=== PATIENT | female | born 1935 | race Caucasian/White ===

== ENCOUNTER 2021-07-08 09:22 | Emergency (ER) | payer OTHER ==
--- OUTSIDE RECORDS SUMMARY | 2021-07-08 09:28 | XMS REPORT | Continuity of Care Document ---
:[address] [facility] Address [address] [place] [address] [address] [place] [address] Care Team Providers Name Role Phone Attar Primary Care Physician ANGELITO RUEDA Attending Clinician Unavailable Nurse, Pob Immunization Attending Clinician Unavailable Angelito Rueda DO Attending Clinician NAVA Attending Clinician Unavailable Malachi ENRIQUE Attending Clinician Unavailable Payers Payer Name Policy Type Policy Number Effective Date Expiration Date S betsy MEDICARE PART A [id number] 1998 AND B 00:00:00 [facility] [id number] 1998 00:00:00 MEDICARE PART A [id number] 1998 \T\ B 00:00:00 Problems This patient has no known problems. Allergies, Adverse Reactions, Alerts Allergy Allergy Status Severity Reaction(s) Onset Inactive Treating Comm ents Source Name Type Date Date Clinician NO KNOWN Drug Active Univers ALLERGIE Class ity of [facility] Social History Social Habit Start Date Stop Date Quantity Comments Source Sex Assigned At [birth year] [facility] 00:00:00 00:00:00 [facility] Smoking Status Start Date Stop Date Source Unknown if ever smoked [facility] Medications This patient has no known medications. Immunizations Ordered Filled Immunization Date Status Comments [facility] Immunization Name Name SARS-COV-2 COVID-19 2020-12-22 Completed Unive rsity of MODERNA VACCINE 00:00:00 [facility] SARS-COV-2 COVID-19 2020-05-20 Completed Unive rsity of MODERNA VACCINE 00:00:00 [facility] SARS-COV-2 COVID-19 2020-04-22 Completed Unive rsity of MODERNA VACCINE 00:00:00 [facility] Procedures Procedure Date / Time Performed Performing Clinician Sourgio e SARS-COV-2 COVID-19 2020-12-22 18:07:55 Doctor Unassigned, No [facility] [place] VACCINE,0.5ML,IM Name Medical Branch ([facility]) Encounters Start End Encounter Admission Attending Care Care Encounter Source Date/Time Date/Time Type Type Clinicians Facility Department ID 2021-05-17 Outpatient MDA ROWENA [id number] 17:51:16 Andaddison harley 2021-05-17 Outpatient ROWENA GUAMAN [id number] 17:51:15 Josh harley 2020-12-22 2020-12-22 Outpatient Jean RUEDA [facility] [id number] Univers 13:25:00 13:25:00 MAXI syed [facility] 2020-12-22 2020-12-22 Imm/Inj Nurse, Adc Pob Immunization [facility] [id number] Univers 13:06:08 13:06:33 Visit Maxi Rueda [place] [id number] [facility] [id number] Vaibhav Hanson [id number] [address] 2020-06-12 2020-06-12 Outpatient OVIDIO VICK MDA MDA [id number] 09:50:39 23:59:00 ALEX harley 2020-06-12 2020-06-12 Outpatient OVIDIO VICK MDA MDA [id number] 14:07:54 15:29:05 ALEX harley 2020-06-12 2020-06-12 Outpatient OVIDIO VICK MDA MDA [id number] 10:15:00 10:15:00 ALEX harley 2020-05-20 2020-05-20 Outpatient Jean ENRIQUE [facility] [id number] Univers 12:50:00 12:50:00 LAWANDA syed [facility] 2020-05-20 2020-05-20 Outpatient Jean ENRIQUE [facility] [id number] Univers 12:50:00 12:50:00 LAWANDA [id number] [facility] 2020-04-22 2020-04-22 [facility] [id number] [facility] 13:20:00 13:20:00 LAWANDA [facility] Results This patient has no known results.
[2021-07-08 09:50] LABS: Urine Blood Negative (Negative); Urine Glucose Negative (Negative); Urine Protein Negative (Negative); Urine Specific Gravity 1.025 (1.005-1.030)
[2021-07-08] MEDS ORDERED: NA CHLORIDE 0.9% 500 ML ONE (10:02)
[2021-07-08 10:08] LABS: Absolute Lymphocytes (CBC) 2.3 K/uL (0.7-4.9); Hematocrit 43.1 % (36.0-45.0); Lymphocytes % 20.4 % (15.3-44.8); MPV 9.9 fL (7.6-11.3); RBC Red Blood Cell Count 4.78 M/uL (3.86-4.86)
[2021-07-08 10:25] LABS: Albumin 3.9 g/dL (3.4-5.0); Bilirubin Total 0.5 mg/dL (0.2-1.0); Protein, Total 7.5 g/dL (6.4-8.2)
--- NOTE | 2021-07-08 10:29 | RAD REPORT ---
EXAM DESCRIPTION: US - Abdomen Exam Limited - 07/08/2021 10:18 am CLINICAL HISTORY: EPIGASTRIC PAIN COMPARISON: No comparisonsNo comparisons FINDINGS: Cholecystectomy. Common bile duct is normal caliber measuring 3 millimeters. Patent main p ortal vein. The liver demonstrates no findings of intrahepatic biliary dilatation. IMPRESSION: Cholecystectomy. No biliary ductal dilatation.
[2021-07-08 10:32] LABS: Potassium 4.2 mmol/L (3.5-5.1)
--- NOTE | 2021-07-08 11:08 | RAD REPORT ---
EXAM DESCRIPTION: CTAbdomen Pelvis W Contrast - 07/08/2021 10:53 am CLINICAL HISTORY: ABD PAIN COMPARISON: No comparisons TECHNIQUE: CT of the abdomen and pelvis was performed with contrast. All CT scans are performed using dose optimization technique as appropriate and may include automated exposure control or mA/KV adjustment according to patient size. FINDINGS: Lower chest: Multi-vessel coronary artery disease. Mild circumferential thickened distal e sophagus which may reflect esophagitis. Mitral annular calcifications. Liver: Too small to characterize liver lesions which are likely benign. Biliary: Cholecystectomy Stomach: No significant focal abnormality. Duodenum: No significant focal abnormality. Pancreas: No significant abnormality. Spleen: No significant abnormality. Adrenal: No suspicious lesions. Kidney/ureter: No hydronephrosis. No renal calculi. Too small to characterize and/or benign appearing renal lesions are noted. Retroperitoneum: No retroperitoneal adenopathy. Vascular: No aneurysm. Atherosclerosis. Bowel: Diverticulosis without diverticulitis. No appendix identified. Peritoneum: No ascites or free air. Bladder: Grossly unremarkable. Reproductive: No adnexal masses. Hysterectomy. Bones: No acute fracture. Multilevel degenerative changes are present in the spine. Other: n/a IMPRESSION: No acute intra-abdominal or pelvic finding. Incidental findings as noted above.
--- NOTE | 2021-07-08 11:12 | EDPHYS ---
Physician Documentation [facility] Name: Nusrat Bear Age: 86 yrs Sex: Female : 1935 Arrival Date: 07/08/2021 Time: 09:28 Bed 8 Private MD: Giuseppe Bernal F ED Physician Lj Santana HPI: 07/08 09:55 This 86 yrs old Female presents to ER via Ambulatory with complaints of Abdominal Pain, pm1 Nausea, Diarrhea. 09:55 The patient presents with abdominal pain in the upper abdomen. Onset: The pm1 symptoms/episode began/occurred today. The symptoms do not radiate. Associated signs and symptoms: Pertinent positives: diarrhea, Pertinent negatives: nausea and vomiting. The symptoms are described as achy, sharp. Modifying factors: The symptoms are alleviated by nothing, the symptoms are aggravated by nothing. Severity of pain: in the emergency department the pain has resolved. The patient has not experienced similar symptoms in the past. The patient has not recently seen a physician. 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 - Social history:: Smoking status: Patient denies any tobacco usage or history of. ROS: 09:55 Constitutional: Negative for fever, chills, and weight loss, Cardiovascular: Negative pm1 for chest pain, palpitations, and edema, Respiratory: Negative for shortness of breath, cough, wheezing, and pleuritic chest pain. 09:55 Back: Negative for injury and pain, : Negative for injury, bleeding, discharge, and swelling, MS/Extremity: Negative for injury and deformity, Skin: Negative for injury, rash, and discoloration, Neuro: Negative for headache, weakness, numbness, tingling, and seizure. 09:55 Abdomen/GI: Positive for abdominal pain, diarrhea, of the epigastric area, Negative for nausea and vomiting. 09:55 All other systems are negative. Exam: 09:55 Constitutional: This is a well developed, well nourished patient who is awake, alert, pm1 and in no acute distress. Head/Face: Normocephalic, atraumatic. 09:55 Back: No spinal tenderness. No costovertebral tenderness. Full range of motion. Skin: Warm, dry with normal turgor. Normal color with no rashes, no lesions, and no evidence of cellulitis. 09:55 MS/ Extremity: Pulses equal, no cyanosis. Neurovascular intact. Full, normal range of motion. 09:55 Cardiovascular: Exam negative for acute changes, Rate: normal. 09:55 Respiratory: Exam negative for acute changes, respiratory distress, shortness of breath. 09:55 Abdomen/GI: Inspection: abdomen appears normal, Palpation: abdomen is soft and non-tender. 09:55 Neuro: Exam negative for acute changes, Orientation: is normal, Mentation: is normal, Motor: is normal, moves all fours. Vital Signs: 09:48 BP 159 / 68; Pulse 84; Resp 16; Temp 97.4; Pulse Ox 99% on R/A; Weight 66.68 kg; Height ww 5 ft. 4 in. (162.56 cm); Pain 6/10; 09:48 Body Mass Index 25.23 (66.68 kg, 162.56 cm) ww MDM: 09:39 Patient medically screened. pm1 09:55 ED course: Patient is not experiencing any pain right now. Will give the patient pain pm1 medications if the pain returns. 11:11 Data reviewed: vital signs. Data interpreted: Pulse oximetry: on room air is 99 %. pm1 Interpretation: normal. 11:11 Counseling: I had a detailed discussion with the patient and/or guardian regarding: the pm1 historical points, exam findings, and any diagnostic results supporting the discharge/admit diagnosis, lab results, radiology results, the need for outpatient follow up, to return to the emergency department if symptoms worsen or persist or if there are any questions or concerns that arise at home. 07/08 09:50 Order name: Urine Dipstick-Ancillary; Complete Time: 09:55 EDMS 07/08 09:55 Order name: CBC with Diff; Complete Time: 11:36 pm1 07/08 09:55 Order name: CMP; Complete Time: 10:37 pm1 07/08 09:55 Order name: Lipase; Complete Time: 10:37 pm1 07/08 09:55 Order name: CT Abd/Pelvis - IV Contrast Only; Complete Time: 11:11 pm1 07/08 11:31 Order name: CBC Smear Scan; Complete Time: 11:36 EDKY 07/08 09:55 Order name: IV Saline Lock; Complete Time: 09:56 pm1 07/08 09:55 Order name: Labs collected and sent; Complete Time: 09:56 pm1 07/08 09:59 Order name: US Abdomen Limited; Complete Time: 10:37 pm1 Administered Medications: 10:10 Drug: NS 0.9% 500 ml Route: IV; Rate: bolus; Site: right forearm; ww 11:22 Drug: Bentyl (dicyclomine) 20 mg Route: PO; ww Disposition Summary: 07/08/21 11:12 Discharge Ordered Location: Home pm1 Problem: new pm1 Symptoms: have improved pm1 Condition: Stable pm1 Diagnosis - Abdominal pain, unspecified pm1 - Diarrhea, unspecified pm1 Followup: pm1 - With: Emergency Department - When: As needed - Reason: Worsening of condition Followup: pm1 - With: Private Physician - When: 2 - 3 days - Reason: Recheck today's complaints, Continuance of care, Re-evaluation by your physician Discharge Instructions: - Discharge Summary Sheet pm1 - Abdominal Pain, Adult pm1 - Food Choices to Help Relieve Diarrhea, Adult pm1 - Diarrhea, Adult pm1 Forms: - Medication Reconciliation Form pm1 - Thank You Letter pm1 - Antibiotic Education pm1 - Prescription Opioid Use pm1 Prescriptions: - dicyclomine 20 mg Oral Tablet - take 1 tablet by ORAL route every 6 hours As needed; 20 tablet; Refills: 0, pm1 Product Selection Permitted Addendum: 07/11/2021 07:12 Co-signature as Attending Physician, Lj Santana MD I agree with the assessment and c watikns plan of care. Signatures: Dispatcher [employer] [facility] Lj Santana MD MD cha Marinas, Patrick, REVERBERATORY FURNACE OPERATOR REVERBERATORY FURNACE OPERATOR pm1 Lucy De La Cruz RN RN ww Corrections: (The following items were deleted from the chart) 07/08 17:53 09:55 Associated signs and symptoms: none. pm1 pm1 17:53 09:55 Abdomen/GI: Positive for abdominal pain, of the epigastric area, Negative for pm1 nausea, vomiting, and diarrhea, constipation, pm1
--- NOTE | 2021-07-08 11:12 | ER ---
Nurse's Notes [facility] Name: Nusrat Bear Age: 86 yrs Sex: Female : 1935 Arrival Date: 07/08/2021 Time: 09:28 Bed 8 Private MD: Giuseppe Bernal F Diagnosis: Abdominal pain, unspecified;Diarrhea, unspecified Presentation: 07/08 09:48 Chief complaint: Patient states: Epigastric pain that started last night. Throughout ww the night she developed diarrhea. Patient denies any vomiting. Coronavirus screen: Vaccine status: Patient reports receiving the 2nd dose of the covid vaccine. Client denies travel out of the [place] in the last 14 days. Ebola Screen: Patient denies travel to an Ebola-affected area in the 21 days before illness onset. Initial Sepsis Screen: Does the patient meet any 2 criteria? No. Patient's initial sepsis screen is negative. Does the patient have a suspected source of infection? No. Patient's initial sepsis screen is negative. Risk Assessment: Do you want to hurt yourself or someone else? Patient reports no desire to harm self or others. Onset of symptoms was July 08, 2021. 09:48 Method Of Arrival: Ambulatory ww 09:48 Acuity: VIKAS 3 ww Triage Assessment: 09:50 General: Appears in no apparent distress. Behavior is cooperative. Pain: Complains of ww pain in epigastric area. Neuro: Level of Consciousness is awake, alert, obeys commands, Oriented to person, place, time, situation, Moves all extremities. Speech is normal. Cardiovascular: Capillary refill Patient's skin is warm and dry. Chest pain is denied. Respiratory: Airway is patent Respiratory effort is even, unlabored, Respiratory pattern is regular, symmetrical. GI: Abdomen is non-distended, Reports upper abdominal pain, diarrhea. : No signs and/or symptoms were reported regarding the genitourinary system. Derm: Skin is thin. 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 - Social history:: Smoking status: Patient denies any tobacco usage or history of. Screenin:52 Abuse screen: Denies threats or abuse. Denies injuries from another. Nutritional ww screening: No deficits noted. Tuberculosis screening: No symptoms or risk factors identified. Fall Risk None identified. Assessment: :52 Reassessment: See Triage assessment. ww 10:36 Reassessment: Patient appears in no apparent distress at this time. No changes from ww previously documented assessment. Patient and/or family updated on plan of care and expected duration. Pain level reassessed. Patient is alert, oriented x 3, equal unlabored respirations, skin warm/dry/pink. Vital Signs: 09:48 BP 159 / 68; Pulse 84; Resp 16; Temp 97.4; Pulse Ox 99% on R/A; Weight 66.68 kg; Height ww 5 ft. 4 in. (162.56 cm); Pain 6/10; 09:48 Body Mass Index 25.23 (66.68 kg, 162.56 cm) ww ED Course: 09:28 Patient arrived in ED. mr 09:29 Giuseppe Bernal MD is Private Physician. mr 09:37 [facility] Noble [facility] pm1 09:37 Lj Santana MD is Attending Physician. pm1 09:48 Lucy De La Cruz, ROSALBA is Primary Nurse. ww 09:50 Triage completed. ww 09:50 Arm band placed on right wrist. ww 09:51 Patient has correct armband on for positive identification. Bed in low position. Call mb7 light in reach. Side rails up X 1. Door closed. Noise minimized. Warm blanket given. 09:52 Pulse ox on. NIBP on. ww 10:20 US Abdomen Limited In Process Unspecified. EDMS 10:48 Inserted saline lock: 20 gauge in left antecubital area, using aseptic technique. ww 10:54 CT Abd/Pelvis - IV Contrast Only In Process Unspecified. EDMS 11:29 IV discontinued, intact, bleeding controlled, No redness/swelling at site. Pressure jw7 dressing applied. Administered Medications: 10:10 Drug: NS 0.9% 500 ml Route: IV; Rate: bolus; Site: right forearm; ww 11:22 Drug: Bentyl (dicyclomine) 20 mg Route: PO; ww Outcome: 11:12 Discharge ordered by . pm1 11:47 Patient left the ED. ww Signatures: Dispatcher [employer] Nusrat Aguilera mr Ottoniel Noble, MEDIUM CYCLE SALESPERSON MEDIUM CYCLE SALESPERSON pm1 Concepcion, Nusrat mb7 Lucy De La Cruz, ROSALBA RN ww Javier, [place] jw7
[2021-07-08] MEDS ORDERED: DICYCLOMINE HCL 10 MG CAP ONE (11:24)
[2021-07-08 11:30] LABS: Blood Morphology Comment NOT SEEN (NOT SEEN); Platelet Estimate ADEQ; White Blood Cell Scan OK (OK)
[2021-07-08 11:52] VITALS: BP 159/68; TEMP 97.4; O2SAT 99
== END 2021-07-08 11:47 | disposition home or self-care (01) ==
LOC: ER 09:22
DX: R19.7 Diarrhea, unspecified (principal); I10 Essential (primary) hypertension; Z85.3 Personal history of malignant neoplasm of breast; Z88.8 Allergy status to other drugs, medicaments and biological substances; Z90.13 Acquired absence of bilateral breasts and nipples
CPT/HCPCS: 85025; 36415; 81003; 83690; 80053; 74177; 76705; 99284; Q9967; J7040